=== PATIENT | female | born 2005 | race Caucasian/White ===

== ENCOUNTER 2024-06-09 02:40 | Emergency (ER) | payer OTHER ==
[~2024-06-09] VITALS: Ht 162.6 cm; Wt 81.6 kg
[2024-06-09 02:43] VITALS: PULSE 96; RESP 16; TEMP 98.2
[2024-06-09 03:13] VITALS: BP 129/71; PULSE 96; RESP 16; TEMP 98.2; O2SAT 99
== END 2024-06-09 03:15 | disposition left against medical advice (07) ==
LOC: FSED 02:44
DX: O26.892 Other specified pregnancy related conditions, second trimester (principal); R10.32 Left lower quadrant pain
CPT/HCPCS: 99283